=== PATIENT | male | born 1975 | race Caucasian/White ===

== ENCOUNTER 2017-02-24 13:44 | Emergency (ER) | payer OTHER ==
[~2017-02-24] VITALS: Ht 182.9 cm; Wt 127.3 kg
[2017-02-24 14:14] VITALS: BP 131/99; PULSE 97; RESP 18; O2SAT 97
--- NOTE | 2017-02-24 14:50 | DRSVH ---
PROCEDURE: CT BRAIN WITHOUT CONTRAST ([id number]) INDICATIONS: trauma TECHNIQUE: Noncontrast 4.5 mm thick angled axial sections acquired from the foramen magnum to the vertex, with c oronal reformats. COMPARISON: [facility], CT, CT ANGIO BRAIN, 11/14/2016, 16:39. FINDINGS: Image quality: Excellent. CSF spaces: Basal cisterns are patent. No extra-axial fluid collections. Ventricles are normal in size and shape. Brain: No midline shift. No acute intracranial masses or hemorrhage. There is a 7 mm focus of incr eased attenuation posteriorly in the right frontal lobe near the sagittal midline seen previously has an enhancing lesion thought to represent a small vascular abnormality. It is unchanged. No other abn ormality is seen. Allred-white matter interface is normal. Skull and face: Calvarium and visualized facial bones are intact, without suspicious lesions. Sinuses: Visualized sinuses and mastoids are clear. IMPRESSION: No acute traumatic abnormalities found. Unchanged focus of increased attenuation 7 mm in size in the posterior medial high right frontal lobe . 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 It is unchanged in appearance. Dictated by: Raymundo Carreon M.D. on 02/24/2017 at 14:40 Approved by: Raymundo Carreon M.D. on 02/24/2017 at 14:48
--- NOTE | 2017-02-24 14:55 | DRSVH ---
PROCEDURE: CT CERVICAL SPINE WITHOUT CONTRAST ([id number]) INDICATIONS: trauma TECHNIQUE: Noncontrast 3 mm thick sections acquired from the skull base to the T4 level. Sagittal and coronal r eformats were then constructed. For radiation dose reduction, the following was used: automated exp osure control, adjustment of mA and/or kV according to patient size. COMPARISON: None. FINDINGS: Image quality: Excellent. Bones: No fractures or dislocations. Visualized superior ribs are intact. Soft tissues: Prevertebral soft tissues are normal in thickness. No paravertebral hematomas. No ap ical pneumothoraces. IMPRESSION: No acute bony abnormalities found in the cervical spine image for trauma to the top of th e head. Specifically the cervical cranium shows no traumatic abnormality.. Dictated by: Raymundo Carreon M.D. on 02/24/2017 at 14:48 Approved by: Raymundo Carreon M.D. on 02/24/2017 at 14:53
[2017-02-24 17:59] VITALS: BP 134/74; PULSE 85; RESP 20; O2SAT 94
--- NOTE | 2017-02-24 18:05 | ED.REPORT ---
HPI-Head Prob / Injury Date of Service Feb 24, 2017 ED Provider: Shahid Butler DO Pt is a 41 y/o male w/ a hx of possible AVM or cavernous angioma currently being followed by neurology at [facility] and neurosurgery at [facility], and the history of a CVA with residual LLE weakness, presenting to the ED due to head injury which occurred about 1.5 hours prior to arrival. The patient was digging a posthole and accidentally hit himself in the head with the posthole pounder. He reports a small laceration about the top of the scalp. He c/o associated RIVERS, neck pain, mild intermittent LLE tingling which he believes is chronic. He denies vomiting, vision changes. Nursing Notes Stated Complaint: PT HAS AVM CEREBRAL HIT IN HEAD W/METAL BAR Chief Complaint: Neuro Symptoms/ Deficits Nursing Notes Reviewed: Yes Allergies: Coded Allergies: Penicillins (Verified Allergy, Severe, anaphylaxis, 02/24/17) General Time Seen by Provider: 18:00 Chief Complaint Blunt head trauma Hx Obtained From: Patient Arrived By: Walk-in Onset Occurred: 1 - 4 hours ago Symptom Duration: Since onset Caused by: Blunt trauma Location: : Neck Quality: Painful Severity: Current: Moderate Severity: Maximum: Moderate Past Medical History Past Medical History AVM vs brain malformation - followed by [facility] Self-reported CVA 2001 - residual left leg weakness Past Surgical History None reported Smoking History Unknown if Ever Smoker Social History Works at [employer] Other Social History: Good social support Ambulatory Status Independent Review of Systems Constitutional: Denies: Chills, Fever GI: Denies: Abdominal pain, Nausea, Vomiting Musculoskeletal: Reports: Neck pain, Denies: Back pain Neurologic: Reports: Headache, Numbness (chronic), Denies: Change LOC, Confusion, Focal weakness Complete sys rev & neg: except as marked. Physical Exam Initial Vital Signs Vital Signs (First) Date Time Temp Pulse Resp B/P Pulse Ox O2 Delivery O2 Flow Rate FiO2 02/24/17 14:14 36.3 97 18 131/99 97 Room Air Initial VS: Reviewed Respiratory: Breath sounds normal, Clear to auscultation, No respiratory distress Cardiovascular: Regular rate & rhythm, Heart sounds normal, Intact distal pulses Abdomen / GI: Soft, Non-tender, No guarding, No rebound, No distention Extremities: Vascular intact, Neuro intact, No swelling, No tenderness Skin: Warm, Dry, No cyanosis Psychiatric: Mood/affect normal, Behavior normal, Normal thought content General/Constitutional: Awake, Alert, No acute distress, Well appearing, Cooperative, Not toxic appearing Head / Eyes: Normocephalic, PERRL 3.5 cm laceration about the top of scalp ENT: Atraumatic, Airway patent, Mucous membranes moist Neck: Atraumatic, Supple, No meningismus, Full range of motion Neurologic: Oriented X3, Speech NL, No sensory deficits, CN II - XII intact, Cerebellar NL, Memory NL Dorsiflexion 4/5 on left, 5/5 on right - patient reports this is chronic Interpretation & Diagnostics CT Head Interpretation IMPRESSION: No acute traumatic abnormalities found. Unchanged focus of increased attenuation 7 mm in size in the posterior medial high right frontal lobe. 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 It is unchanged in appearance. Dictated by: Raymundo Carreon M.D. on 02/24/2017 at 14:40 Approved by: Raymundo Carreon M.D. on 02/24/2017 at 14:48 Study: Head CT no contrast Interpretation / Wet Read by: Interpret - Radiologist CT C-Spine Interpretation IMPRESSION: No acute bony abnormalities found in the cervical spine image for trauma to the top of the head. Specifically the cervical cranium shows no traumatic abnormality.. Dictated by: Raymundo Carreon M.D. on 02/24/2017 at 14:48 Approved by: Raymundo Carreon M.D. on 02/24/2017 at 14:53 Study type: CT no contrast Interpretation / Wet Read by: Interpret - Radiologist Procedures Laceration Management Time: 18:25 Procedure Performed by: ED physician Consent / Setup / Site Prep: Consent from patient, Time-out performed, Hand hygiene observed, Stand sterile technique Location of Wound: Top of scalp Wound Length: 4 cm (3.5) Local Anesthesia: Lidocaine w epi 1% Wound Preparation: Hibiclens - Chlorhexidine Debridement: None Irrigation: Copious Repair Skin: Josiah Closure Layers: 1 Post-Procedure / Complications: No complications, Tolerated procedure well, Patient stable Re-Eval/Medical Decision Med Decision/Clinical Course Neurologic exam is at baseline for him today. CTs are reassuring. 3.5 cm laceration was cleaned, anesthetized and then closed with 11 josiah. Headache resolved with Toradol 30 mg IM. Patient feeling much better and was reassured by the findings of the scans. Plans to follow-up in 10-14 days for staple removal Re-Evaluation/Progress : Time of Eval: 18:26 Re-Evaluation/Progress Note: Pt rechecked. Informed pt of plan for treatment. Pt understands and agrees with plan for treatment. F/U instructions and RTER warnings given. All questions addressed. Will be dced after lac repair. Counseled Regarding: Diagnosis, Need for follow-up, When/why to return to ED Discharge & Departure Primary Impression: Minor head injury Encounter type: initial encounter Qualified Code: S00.90XA - Unspecified superficial injury of unspecified part of head, initial encounter Additional Impressions: Scalp laceration Encounter type: initial encounter Qualified Code: S01.01XA - Laceration without foreign body of scalp, initial encounter Headache Headache type: post-traumatic Headache chronicity pattern: acute headache Intractability: not intractable Qualified Code: G44.319 - Acute post- traumatic headache, not intractable Disposition: Home All VS Reviewed: Yes Condition: Stable Patient Instructions: Minor Head Injury (ED) Additional Instructions: The CT scan of your head was unchanged from previous and neck CT was normal. Have the josiah removed in 10-14 weeks by a medical professional. Keep the area dry for 24 hours. Take 800 mg Ibuprofen every 8 hours as needed for pain. Return to the emergency department for any new or worsening symptoms. Follow-up with your doctor as regularly scheduled. Referrals: Griselda Frias MD (PCP) Jessica Valladares MD Attestation Portions of this note were transcribed by Keven Paulino. I, Dr. Butler personally performed the history, physical exam and medical decision-making; I reviewed and confirmed the accuracy of the information in the transcribed note. Signed by Fely Morris, 02/24/17 - 1814 copies to: Jessica Valladares MD; Griselda Frias MD, Gary R DO Feb 24, 2017 18:05 KEVEN PAULINO Feb 24, 2017 18:11
[2017-02-24] MEDS ORDERED: Lidocaine 1%-Epi 1:100,000 20 mL Inj ONE (18:07)
== END 2017-02-24 19:33 | disposition home or self-care (01) ==
LOC: SED 13:44
DX: S01.01XA Laceration without foreign body of scalp, initial encounter (principal); W22.8XXA Striking against or struck by other objects, initial encounter; Y93.89 Activity, other specified; Y92.89 Other specified places as the place of occurrence of the external cause; Y99.8 Other external cause status; G44.319 Acute post-traumatic headache, not intractable
CPT/HCPCS: 12002; 70450; 72125; 96372; 99284; J1885

== ENCOUNTER 2017-03-07 07:21 | Emergency (ER) | payer OTHER ==
[2017-03-07 07:25] VITALS: BP 129/89; PULSE 88; RESP 20; O2SAT 95
== END 2017-03-07 07:56 | disposition home or self-care (01) ==
LOC: SED 07:21
DX: Z48.02 Encounter for removal of sutures (principal)